=== PATIENT | female | born 1970 | race Hispanic/Latino ===

== ENCOUNTER 2022-08-20 12:39 | Outpatient (CLI) | payer OTHER | END 2022-08-20 12:40 | disposition home or self-care (01) | LOC: SDC 12:39 → BICULT 12:40 → EDSTATUS 13:00 | PROVIDERS: ATTEND Nurse Practitioner Family | DX: R22.32 Localized swelling, mass and lump, left upper limb (principal) | CPT/HCPCS: 38505; 88184 ==